=== PATIENT | male | born 1980 | race Caucasian/White ===

== ENCOUNTER 2016-08-27 18:50 | Emergency (ER) | payer OTHER ==
[~2016-08-27] VITALS: Ht 177.8 cm; Wt 166.8 kg
[2016-08-27 19:34] LABS: HEMOGLOBIN 15.1 g/dL (13.7-18.0)
[2016-08-27 19:41] LABS: BLOOD UREA NITROGEN 10 mg/dL (7-18)
[2016-08-27 19:44] LABS: ASPARTATE AMINO TRANSFERASE 22 U/L (15-37)
[2016-08-27] MEDS ORDERED: LORazepam 1MG TABLET ONE (21:44)
[2016-08-27] MEDS ORDERED: LORazepam 1MG TABLET PO ONE (22:00)
[2016-08-27 22:09] VITALS: BP 159/91
== END 2016-08-27 22:11 | disposition home or self-care (01) ==
LOC: ED 22:00
DX: F32.9 Major depressive disorder, single episode, unspecified (principal); F41.9 Anxiety disorder, unspecified
CPT/HCPCS: 36415; 80053; 85025; 99284

== ENCOUNTER → 2016-12-19 | Outpatient (CLI) | payer OTHER | END | disposition home or self-care (01) | LOC: CFH 11:36 | PROVIDERS: ATTEND Physician Assistant | DX: M19.071 Primary osteoarthritis, right ankle and foot (principal); M25.771 Osteophyte, right ankle ==